=== PATIENT | male | born 1975 | race Asian ===

== ENCOUNTER 2016-11-11 01:44 | Emergency (ER) | payer OTHER ==
[~2016-11-11] VITALS: Ht 167.6 cm; Wt 72.8 kg
[2016-11-11 01:48] VITALS: TEMP 36.6; Ht 167.6 cm; Wt 72.8 kg
[2016-11-11] MEDS ORDERED: DiphenhydrAMINE HCL 50 MG/ML VIAL IV STA (02:04)
[2016-11-11] MEDS ORDERED: EPINEPHRINE ADULT AUTO-INJECT 0.3 MG SYR IM ONE (02:15)
[2016-11-11] MEDS ORDERED: DEXAMETHASONE SOD INJ 10 MG/ML VIAL IV ONE (02:15)
[2016-11-11 02:24] VITALS: O2SAT 99
--- NOTE | 2016-11-11 02:56 | EMERGENCY ROOM VISIT NOTE ---
History First contact with patient: 01:52 Chief Complaint: ALLERGIC REACTION Stated Complaint: FOOD ALLERGIES History of Present Illness The patient is a 41 year old male who presents to the Emergency Room with complaints of allergic reaction after eating shrimp. Patient is allergic to lobster. He has had no problems in the past with shrimp until now. He took 2 Claritin and feels slightly better. Patient complains of rash and itching and some slight throat discomfort. Patient denies chest pain, dyspnea, fever, chills, facial swelling, feeling of impending doom, abdominal pain. Review of Systems See HPI for pertinent positives & negatives. A total of 10 systems reviewed and were otherwise negative. Past Medical/Surgical History none Social History Smoking Status: Never Smoker Smokeless Tobacco Use: No Drug Use: none Occupation Status: employed Current/Historical Medications No Active Prescriptions or Reported Meds Allergies Coded Allergies: Lobster (Verified Allergy, Unknown, ITCHY, 11/11/16) Physical Exam Vital Signs Date Time Temp Pulse Resp B/P (MAP) Pulse Ox O2 Delivery O2 Flow Rate FiO2 11/11/16 02:30 79 16 97 Room Air 11/11/16 02:24 99 Room Air 11/11/16 02:24 Room Air 99 11/11/16 01:48 36.6 76 18 140/92 95 Room Air Physical Exam VITALS: Vitals are noted on the nurse's note and reviewed by myself. Vital signs stable. GENERAL:pleasant male, in no acute distress, nondiaphoretic, well-developed well -nourished. SKIN: Diffuse erythematous slightly raised dermatitis that is blanchable consistent with allergic reaction The rest of the skin was without rashes, erythema, edema, or bruising. There is no tenting of the skin. Capillary reflex less than 2 seconds. HEAD: Normocephalic atraumatic. EARS: External auditory canals clear, tympanic membranes pearly luong without erythema or effusion bilaterally. EYES: Pupils equal round and reactive to light and accommodation. Conjunctivae without injection, sclerae without icterus. Extraocular movements intact. NOSE: Patent, turbinates without inflammation or discharge. MOUTH: Mucous membranes moist. . Pharynx without erythema or exudate. Uvula midline. Airway patent. Tongue does not deviate. No airway compromise. No facial swelling. NECK: Supple without nuchal rigidity. No lymphadenopathy. No thyromegaly. Cervical spine is nontender. No JVD. HEART: Regular rate and rhythm without murmurs gallops or rubs. LUNGS: Clear to auscultation bilaterally without wheezes, rales or rhonchi. No dullness to percussion. No retractions or accessory muscle use. ABDOMEN: Positive bowel sounds x 4. Normal tympanic percussion. Soft, nontender, without masses or organomegaly. Mayo sign negative. No guarding or rebound tenderness. MUSCULOSKELETAL: No muscle atrophy, erythema, or edema noted. NEURO: Patient was alert and oriented to person place and time. Normal sensation to light and sharp touch. No focal neurological deficits. Medical Decision & Procedures Medications Administered Medications (Trade) Dose Ordered Sig/Veda Route Start Time Stop Time Status Last Admin Dose Admin Dexamethasone Sodium Phosphate (Decadron Inj) 10 mg NOW ONCE IV 11/11/16 02:15 11/11/16 02:16 DC 11/11/16 02:32 10 MG Diphenhydramine HCl (Benadryl Inj) 50 mg NOW STAT IV 11/11/16 02:04 11/11/16 02:05 DC 11/11/16 02:32 50 MG ED Course Prior records/ancillary studies reviewed. Triage Nursing notes reviewed. The patient's history was concerning for possible allergic reaction. Differential diagnosis: Etiologies such as allergic reaction, anaphylaxis, urticaria, Madden-Travis syndrome, toxic epidermal necrolysis, erythema multiforme, cellulitis, as well as others were entertained. Physical examination: As above. ER treatment provided: Continuous cardiac monitoring Benadryl 50 mg IV Zantac 50 mg IV Decadron 10 mg IV On reassessment the patient felt better. Diagnostic interpretation by me: Deferred It appears the patient had an allergic reaction. The above treatment did well to reverse the symptoms. After prolonged monitoring and frequent reassessments the patient did very well and symptoms resolved. The patient was counseled on the spectrum of this disease process and told to avoid potential triggers. I gave my usual and customary discussion regarding this issue. By the evaluation outlined above emergent etiologies such as recurring anaphylaxis, anaphylatic shock, airway compromise, Madden-Travis syndrome, toxic epidermal necrolysis, erythema multiforme, infectious etiologies, as well as others were deemed relatively unlikely. The pt informed about the findings as listed above. All questions were answered and pleased with the treatment. Return instructions were outlined and the patient was discharged in stable condition. Outpatient prescription management: EpiPen prednisone Referral: The patient was referred back to primary care physician for follow-up in 2-3 days for a recheck of the current condition. Medical Decision as above Impression Primary Impression: Allergic reaction Departure Information Dispostion Home / Self-Care Condition GOOD Prescriptions No Active Prescriptions or Reported Meds Referrals [facility] (PCP) Patient Instructions My [facility] Additional Instructions Do not eat shrimp in the future. Gucci this as an allergy. DO NOT drive, drink alcohol, operate machinery, or perform dangerous activities today. You were given medications in the ER that can affect your ability to safely function or operate a vehicle. Epi-Pen: Use one injection as instructed for severe allergic reactions associated with shortness of breath, difficulty breathing, or throat or tongue swelling. If you use this injection call 911 or proceed immediately to the nearest Emergency Room. Prednisone 50mg: Once daily until the prescription is finished. It is best to take this earlier in the day as some patients note occasional difficulty falling asleep when taken in the late evening. Diphenhydramine(Benadryl) 25mg: use 25 to 50 mg every six hours for swelling, itching, or hives. This medication is sedating and will cause drowsiness. Avoid alcohol, operating machinery or dangerous equipment, working on ladders or roofs, DRIVING, or situations where being under the influence may be dangerous. Zantac 75: Take two pills twice a day along with Benadryl as needed for swelling , itching, or hives. Most people know this for its affect on the stomach, but it also acts similar to, but less potent than Benadryl for allergic reactions. Both the Benadryl and the Zantac are available [id number]. Continue current medications. Return to the emergency department for worsening of your rash, swelling of your face, lips, tongue, or throat, difficulty breathing, vomiting, or as needed. Follow-up with your primary care physician in 2 to 3 days for a recheck of your current condition. Problem Qualifiers Primary Impression: Allergic reaction Encounter type: initial encounter Qualified Codes: T78.40XA - Allergy, unspecified, initial encounter
[2016-11-11] MEDS ORDERED: PRED50TA PO (02:57)
[2016-11-11 03:10] VITALS: BP 104/67; PULSE 79; O2SAT 98
== END 2016-11-11 03:18 | disposition home or self-care (01) ==
LOC: C.EDB 01:45
DX: T78.40XA Allergy, unspecified, initial encounter (principal); X58.XXXA Exposure to other specified factors, initial encounter; Z91.013 Allergy to seafood

== ENCOUNTER → 2017-05-09 | Outpatient (CLI) | payer OTHER ==
[2017-05-09 11:20] LABS: THYROID STIMULATING HORMONE 1.5 uIu/ml (0.300-4.500)
== END | disposition home or self-care (01) ==
LOC: C.LAB1850 09:31
PROVIDERS: ATTEND Internal Medicine Endocrinology, Diabetes & Metabolism
DX: E05.90 Thyrotoxicosis, unspecified without thyrotoxic crisis or storm (principal)

== ENCOUNTER 2017-05-30 08:22 | Emergency (ER) | payer OTHER ==
[2017-05-30 08:37] VITALS: TEMP 36.7
[2017-05-30] MEDS ORDERED: ONDANSETRON INJ 2 MG/ML 2 ML VIAL IV STA (09:00)
[2017-05-30] MEDS ORDERED: HYDROmorphone INJ 0.5 MG/0.5 ML SYR IV STA ×2 (09:00→11:00)
--- NOTE | 2017-05-30 09:14 | EMERGENCY ROOM VISIT NOTE ---
History First contact with patient: 08:43 Chief Complaint: ABDOMINAL PAIN Stated Complaint: BELLY PAIN History of Present Illness The patient is a 42 year old male who presents to the Emergency Room with complaints of abdominal pain which began at 7 AM yesterday morning. The patient states the pain was mild, but he did have intermittent periods of more intense abdominal pain. He states the pain seemed to improve yesterday evening , and he was okay until 5 AM this morning. At this time, the patient began experiencing severe, very sharp pain his periumbilical area. He states the pain does come and go, but does remain present consistently. The patient denies any fever, diarrhea, chills, nausea, vomiting, upper respiratory infection, recent illness, chest pain, dyspnea, or urinary symptoms. He states the pain has stayed pretty consistent around his bellybutton. He has not taken any medications for pain. His last bowel movement was one hour ago and was normal. Review of Systems A complete 10 point review of systems was reviewed with the patient with pertinent positives and negatives as per history of present illness. All else were negative. Social History Smoking Status: Never Smoker Drug Use: none Occupation Status: employed Physical Exam Vital Signs Date Time Temp Pulse Resp B/P (MAP) Pulse Ox O2 Delivery O2 Flow Rate FiO2 05/30/17 15:42 80 20 104/73 95 05/30/17 14:28 65 16 128/72 96 Room Air 05/30/17 11:22 80 20 124/91 95 05/30/17 10:03 86 18 115/86 95 Room Air 05/30/17 08:37 36.7 87 20 135/94 99 Room Air Physical Exam VITALS: Vitals are noted on the nurse's note and reviewed by myself. Vital signs stable. GENERAL: This is a 42-year-old male, in obvious pain, nondiaphoretic, well -developed well-nourished. SKIN: The skin was without rashes, erythema, edema, or bruising. There is no tenting of the skin. Capillary reflex less than 2 seconds. HEAD: Normocephalic atraumatic. EARS: External auditory canals clear, tympanic membranes pearly luong without erythema or effusion bilaterally. EYES: Pupils equal round and reactive to light and accommodation. Conjunctivae without injection, sclerae without icterus. Extraocular movements intact. NOSE: Patent, turbinates without inflammation or discharge. No sinus tenderness. MOUTH: Mucous membranes moist. Tonsils are not enlarged. Pharynx without erythema or exudate. Uvula midline. Airway patent. Tongue does not deviate. NECK: Supple without nuchal rigidity. No lymphadenopathy. No thyromegaly. Cervical spine is nontender. No JVD. HEART: Regular rate and rhythm without murmurs gallops or rubs. LUNGS: Clear to auscultation bilaterally without wheezes, rales or rhonchi. No dullness to percussion. No retractions or accessory muscle use. ABDOMEN: Positive bowel sounds x 4. Normal tympanic percussion. The abdomen is firm on palpation and the patient is unable to get comfortable due to pain. The patient is extremely tender periumbilically and over McBurney's point. There are no obvious masses or organomegaly. There is significant guarding. Mayo sign negative. No rebound tenderness. MUSCULOSKELETAL: No muscle atrophy, erythema, or edema noted. Full range of motion without joint tenderness in all extremities. No tenderness to palpation. Normal gait. Strength 5/5 throughout. NEURO: Patient was alert and oriented to person place and time. Normal sensation to light and sharp touch. Deep tendon reflexes 2+ throughout. No focal neurological deficits. Medical Decision & Procedures ER Provider Diagnostic Interpretation: CBC did show leukocytosis of >12,000. No anemia or thrombocytopenia. Urinalysis is without signs of infection. CMP shows mildly elevated bilirubin, CO2 of 25, normal liver and renal function , and no significant electrolyte abnormalities. Lipase was normal. POC Lactic acid 1.17. ABD/PELVIS IV AND ORAL CONT CT DOSE: 303.38 mGy.cm HISTORY: Pain Periumbilical pain, RLQ tenderness TECHNIQUE: Multiaxial CT images of the abdomen and pelvis were performed following the use of intravenous and oral contrast. A dose lowering technique was utilized adhering to the principles of ALARA. COMPARISON STUDY: None. FINDINGS: Slight bibasilar interstitial prominence. Small hiatal hernia. 7 mm cyst superior aspect right hepatic lobe. Mild fatty infiltration of liver. The colonic pattern is nonobstructive. Small bowel pattern shows areas of a diffuse wall edematous change in the low central abdominal region. This is seen primarily deep to the umbilicus. The anterior abdominal wall appears to be intact. Maximum wall thickness of the small bowel in this location is 1.3 cm. There is a moderate amount of free fluid within the cul-de-sac which is most likely reactive. There is moderate infiltrative change of the surrounding fat. The remainder the small bowel appears unremarkable and essentially nondistended. Diagnostic considerations include the possibility of an inflammatory bowel process such as Crohn's disease, versus the less likely possibility of a closed loop obstruction given the absence of small bowel distention proximal to this site. This appears to involve a length of small bowel proximally 20 to 25 cm. There is no evidence for a significant rotational anomaly or bowel malrotation. There is no evidence for pneumatosis or free air. The appendix is unremarkable. Maximum wall thickness is approximately 1.3 cm in this region. IMPRESSION: 1. Considerable long segment of small bowel in the central abdominal region showing marked edematous change and or wall thickening. This is estimated at 20 to 25 cm in length, with a maximum wall thickness of 1.3 cm. 2. Diagnostic considerations include inflammatory bowel process such as Crohn's disease, versus the less likely possibility of a closed loop obstruction as discussed above. 3. No evidence for free air or pneumatosis. 4. No evidence for abscess collection or obstruction. 5. Possibility of an atypical presentation of an entity such as lymphoma is not entirely excluded although is considered less likely The above report was generated using voice recognition software. It may contain grammatical, syntax or spelling errors. Electronically signed by: Gucci Bergeron M.D. 05/30/2017 12:27 PM Dictated Date/Time: 05/30/2017 12:12 PM Laboratory Results 05/30/17 09:10 Red Blood Count 5.33, Mean Corpuscular Volume 85.7, Mean Corpuscular Hemoglobin 30.2, Mean Corpuscular Hemoglobin Concent 35.2, Mean Platelet Volume 9.8, Neutrophils (%) (Auto) 72.8, Lymphocytes (%) (Auto) 20.0, Monocytes (%) (Auto) 5.4, Eosinophils (%) (Auto) 1.0, Basophils (%) (Auto) 0.2, Neutrophils # (Auto) 9.18, Lymphocytes # (Auto) 2.53, Monocytes # (Auto) 0.68, Eosinophils # (Auto) 0.13, Basophils # (Auto) 0.03 05/30/17 09:10 05/30/17 10:08 Test 05/30/17 09:10 05/30/17 09:15 05/30/17 10:08 05/30/17 16:13 White Blood Count 12.63 K/uL (4.8-10.8) Red Blood Count 5.33 M/uL (4.7-6.1) Hemoglobin 16.1 g/dL (14.0-18.0) Hematocrit 45.7 % (42-52) Mean Corpuscular Volume 85.7 fL (80-100) Mean Corpuscular Hemoglobin 30.2 pg (25-34) Mean Corpuscular Hemoglobin Concent 35.2 g/dl (32-36) Platelet Count 239 K/uL (130-400) Mean Platelet Volume 9.8 fL (7.4-10.4) Neutrophils (%) (Auto) 72.8 % Lymphocytes (%) (Auto) 20.0 % Monocytes (%) (Auto) 5.4 % Eosinophils (%) (Auto) 1.0 % Basophils (%) (Auto) 0.2 % Neutrophils # (Auto) 9.18 K/uL (1.4-6.5) Lymphocytes # (Auto) 2.53 K/uL (1.2-3.4) Monocytes # (Auto) 0.68 K/uL (0.11-0.59) Eosinophils # (Auto) 0.13 K/uL (0-0.5) Basophils # (Auto) 0.03 K/uL (0-0.2) RDW Standard Deviation 41.9 fL (36.4-46.3) RDW Coefficient of Variation 13.4 % (11.5-14.5) Immature Granulocyte % (Auto) 0.6 % Immature Granulocyte # (Auto) 0.08 K/uL (0.00-0.02) Anion Gap 4.0 mmol/L (3-11) Estimated GFR () 114.1 Estimated GFR (Non- 98.5 BUN/Creatinine Ratio 13.9 (10-20) Calcium Level 9.1 mg/dl (8.5-10.1) Total Bilirubin 1.3 mg/dl (0.2-1) Alanine Aminotransferase (ALT/SGPT) 51 U/L (12-78) Alkaline Phosphatase 99 U/L (45-117) Total Protein 8.3 gm/dl (6.4-8.2) Albumin 3.8 gm/dl (3.4-5.0) Globulin 4.5 gm/dl (2.5-4.0) Albumin/Globulin Ratio 0.8 (0.9-2) Lipase 100 U/L (73-393) Urine Color YELLOW Urine Appearance CLEAR (CLEAR) Urine pH 5.0 (4.5-7.5) Urine Specific [place] 1.026 (1.000-1.030) Urine Protein NEG (NEG) Urine Glucose (UA) NEG (NEG) Urine Ketones NEG (NEG) Urine Occult Blood NEG (NEG) Urine Nitrite NEG (NEG) Urine Bilirubin NEG (NEG) Urine Urobilinogen NEG (NEG) Urine Leukocyte Esterase NEG (NEG) Aspartate Amino Transf (AST/SGOT) 21 U/L (15-37) Bedside Lactic Acid Venous 1.17 mmol/L (0.90-1.70) Medications Administered Medications (Trade) Dose Ordered Sig/Veda Route Start Time Stop Time Status Last Admin Dose Admin Hydromorphone HCl (Dilaudid Inj) 0.5 mg NOW STAT IV 05/30/17 09:00 05/30/17 09:07 DC 05/30/17 09:39 0.5 MG Ondansetron HCl (Zofran Inj) 4 mg NOW STAT IV 05/30/17 09:00 05/30/17 09:07 DC 05/30/17 09:39 4 MG Hydromorphone HCl (Dilaudid Inj) 0.5 mg NOW STAT IV 05/30/17 11:00 05/30/17 11:01 DC 05/30/17 11:13 0.5 MG Oxycodone HCl (Roxicodone Immediate Rel Tab) 5 mg NOW STAT PO 05/30/17 13:47 05/30/17 13:48 DC 05/30/17 14:02 5 MG ED Course The patient was seen and evaluated as above. He was in a significant amount of pain, and could not get comfortable. IV access was obtained, labs were drawn, and the patient was given 0.5 mg Dilaudid and 4 mg Zofran IV. Labs and imaging studies were ordered. I reassessed the patient, and he states he is in no pain. While waiting for CT, the patient states his pain did return, approximately 2 hours after his pain medication. He did request more pain medicine. I did personally see and evaluate the patient, and he does appear to be in moderate to significant discomfort. He continues to have a tender abdomen. He was given a repeat dose of 0.5 mg Dilaudid. I reassessed the patient, and he again states he is pain-free. I did ask the patient has moved his bowels since he has been here, and he states he has not. I discussed results of CT scan with the patient at bedside. I did advise him that I am concerned due to the findings, and suggested possible admission at this time. I discussed the case with Dr. Malagon. He feels that the findings on CT are not acutely concerning, and feels that the patient can be discharged home with treatment for Crohn's disease and follow up with his PCP next week. He did discuss this with the patient. I reassessed the patient, and the patient states he is in pain, and would like more pain medication. I advised him that if the plan is to send him home, we should put him on PO pain medication to ensure that helps. The patient is agreeable. He was given 5mg OxyIR. I reassessed the patient and he states he is feeling better, but still has pain. I consulted with Dr. Lay GI. He recommended based on the patient's symptoms and CT scan results, that the patient be admitted and possible further evaluation performed by the medicine team. He recommended a Lactic Acid level. He states if the patient is not agreeable to admission, he will attempt to have the patient seen in the office outpatient tomorrow. I spoke with the patient regarding this recommendation and he is agreeable to admission. The patient was evaluated by the hospitalist Jeanne SHUKLA. She was unable to elicit any tenderness on abdominal examination. She spoke with her attending and Dr. Lay. Dr. Lay advised Jeanne that the patient would be able to be seen outpatient. Given this information as well as the patient's non-tender abdomen at this time, Dr. Burrell did not feel that the patient meets criteria for admission and recommended discharge. I discussed this with the patient at bedside. He states his pain is returning and he feels that he should not go home. I did re-assess his abdomen and palpated. I did elicit significant tenderness in the periumbilical region again at this time. The patient was wincing due to pain and was guarding. The abdomen was firm. I paged Jeanne to speak with her again and have her re-assess the patient. She spoke with Dr. Burrell again and was advised again that the patient will not be admitted. Jeanne and I discussed this with the patient at bedside. He states his pain is coming and going, lasting a few minutes at most. He states he is feeling well now at this time. The patient will be discharged and follow-up outpatient tomorrow. He is to return for worsening pain which is not relieved by OTC medications. Discharge instructions reviewed, the patient was discharged home in good condition. Medical Decision Etiologies such as appendicitis, diverticulitis, obstruction, inflammatory bowel disease, renal colic, PUD, biliary pathology, pancreatitis, mesenteric ischemia, aortic pathology, infections, genitourinary, UTI, perforated viscus, drug-seeking behavior, as well as others were entertained. The patient presented today in very significant acute pain this morning. He was unable to get comfortable and was in very obvious discomfort. I was concerned for an acute surgical abdomen, likely appendicitis on initial examination. The patient's symptoms improved significantly with Dilaudid. He tolerated the PO contrast without difficulty. He has had no nausea, vomiting, diarrhea, constipation, or other associated symptoms. He has had no chronic symptoms including weight loss or other abdominal pain. He did have an elevated [place] blood [place] of >[address] as well as some concerning findings on CT scan for inflammatory changes, possible closed loop obstruction, or lymphoma. The patient did require multiple rounds of IV narcotics, which did treat his pain. He looked much improved throughout his stay in the ED. I consulted with Dr. Lay, who was concerned for possible ischemic event and recommended admission. The hospitalists were contacted, and the patient had a non-tender abdomen with no concerning signs or symptoms. The hospitalist did not feel that the patient met criteria for admission. While I am uncertain if the patient is experiencing symptoms of an inflammatory bowel disease or other inflammatory condition, I am concerned about a more severe event. The patient was encouraged to use OTC pain medication for relief of his pain. If his pain returns, he is to return immediately to the ED for re-evaluation. He will follow-up short term with Dr. Lay or Dr. Davis tomorrow regarding CT findings. [place] Drug Monitoring Program Search Results: patient reviewed within database, no issues identified Medication Reconcilliation Current Medication List: was personally reviewed by me Blood Pressure Screening Patient's blood pressure: Normal blood pressure Impression Primary Impression: Inflammatory bowel disease Additional Impression: Abdominal pain Departure Information Dispostion Home / Self-Care Condition GOOD Referrals [facility] (PCP) Simon Lay M.D. Patient Instructions ED Inflam Bowel Disease Crohn, My [facility] Additional Instructions You were seen in the emergency department today for abdominal pain. CT scan did show a long segment of small bowel in the central abdomen which showed some edematous change/wall thickening. This is concerning for possible inflammatory bowel process such as Crohn's disease. A less likely concern is a closed loop obstruction or lymphoma. As discussed, I do recommend admission/observation for monitoring and management. If your symptoms worsen, return immediately to the emergency department for further evaluation and management. As discussed, it is possible you could develop an abscess, sepsis, or if your symptoms worsen. icines. Ibuprofen(Motrin, Advil) may be used for fever or pain. Use 600mg every six hours as needed. Take with food. Avoid using more than 2400mg in a 24 hour period. Do not use 2400mg per day for more than three consecutive days without physician direction. Prolonged inappropriate use can lead to stomach upset or ulcers. (AND/OR) Acetaminophen(Tylenol) may be used for fever or pain. Use 1000mg every six hours as needed. Avoid using more than 3000mg in a 24 hour period. Take a stool softener such as Dulcolax to help prevent bowel obstruction or constipation. Follow-up with Dr. Lay's office tomorrow for re-evaluation. Please follow up with [facility] on Saturday for recheck and further management of the inflammatory bowel disease. Return immediately to the emergency department for worsening abdominal pain, constipation, fever, chills, nausea, vomiting, or other worsening associated symptoms. Problem Qualifiers Additional Impression: Abdominal pain Abdominal location: periumbilical Qualified Codes: R10.33 - Periumbilical pain
[2017-05-30 09:21] LABS: BASO % 0.2 %; BASO ABS # 0.03 K/uL (0-0.2); EOS ABS # 0.13 K/uL (0-0.5); HEMATOCRIT 45.7 % (42-52); HEMOGLOBIN 16.1 g/dL (14.0-18.0); IG# 0.08 K/uL (0.00-0.02); LYMPH ABS # 2.53 K/uL (1.2-3.4); MEAN CELL VOLUME 85.7 fL (80-100); MEAN CORPUSCULAR HEMOGLOBIN 30.2 pg (25-34); MEAN CORPUSCULAR HGB CONC 35.2 g/dl (32-36); MEAN PLATELET VOLUME 9.8 fL (7.4-10.4); MONO % 5.4 %; MONO ABS # 0.68 K/uL (0.11-0.59); NEUT % 72.8 %; NEUT ABS # 9.18 K/uL (1.4-6.5); PLATELET COUNT 239 K/uL (130-400); RED CELL DISTRIBUTION WIDTH CV 13.4 % (11.5-14.5); RED CELL DISTRIBUTION WIDTH SD 41.9 fL (36.4-46.3); WHITE BLOOD COUNT 12.63 K/uL (4.8-10.8)
[2017-05-30] MEDS ORDERED: OPTIRAY 320 IV PRN (09:30)
[2017-05-30 09:50] LABS: ALBUMIN 3.8 gm/dl (3.4-5.0); ALKALINE PHOSPHATASE 99 U/L (45-117); ALT/SGPT 51 U/L (12-78); BLOOD UREA NITROGEN 13 mg/dl (7-18); CALCIUM 9.1 mg/dl (8.5-10.1); CARBON DIOXIDE 25 mmol/L (21-32); CREATININE 0.96 mg/dl (0.60-1.40); GLUCOSE 110 mg/dl (70-99); LIPASE 100 U/L (73-393); SODIUM 137 mmol/L (136-145); TOTAL PROTEIN 8.3 gm/dl (6.4-8.2)
[2017-05-30 10:26] LABS: POTASSIUM 4.5 mmol/L (3.5-5.1)
--- NOTE | 2017-05-30 12:28 | DIAGNOSTIC IMAGING REPORT ---
ABD/PELVIS IV AND ORAL CONT CT DOSE: 303.38 mGy.cm HISTORY: Pain Periumbilical pain, RLQ tenderness TECHNIQUE: Multiaxial CT images of the abdomen and pelvis were performed following the use of intravenous and oral contrast. A dose lowering technique was utilized adhering to the principles of ALARA. COMPARISON STUDY: None. FINDINGS: Slight bibasilar interstitial prominence. Small hiatal hernia. 7 mm cyst superior aspect right hepatic lobe. Mild fatty infiltration of liver. The colonic pattern is nonobstructive. Small bowel pattern shows areas of a diffuse wall edematous change in the low central abdominal region. This is seen primarily deep to the umbilicus. The anterior abdominal wall appears to be intact. Maximum wall thickness of the small bowel in this location is 1.3 cm. There is a moderate amount of free fluid within the cul-de-sac which is most likely reactive. There is moderate infiltrative change of the surrounding fat. The remainder the small bowel appears unremarkable and essentially nondistended. Diagnostic considerations include the possibility of an inflammatory bowel process such as Crohn's disease, versus the less likely possibility of a closed loop obstruction given the absence of small bowel distention proximal to this site. This appears to involve a length of small bowel proximally 20 to 25 cm. There is no evidence for a significant rotational anomaly or bowel malrotation. There is no evidence for pneumatosis or free air. The appendix is unremarkable. Maximum wall thickness is approximately 1.3 cm in this region. IMPRESSION: 1. Considerable long segment of small bowel in the central abdominal region showing marked edematous change and or wall thickening. This is estimated at 20 to 25 cm in length, with a maximum wall thickness of 1.3 cm. 2. Diagnostic considerations include inflammatory bowel process such as Crohn's disease, versus the less likely possibility of a closed loop obstruction as discussed above. 3. No evidence for free air or pneumatosis. 4. No evidence for abscess collection or obstruction. 5. Possibility of an atypical presentation of an entity such as lymphoma is not entirely excluded although is considered less likely The above report was generated using voice recognition software. It may contain grammatical, syntax or spelling errors. Electronically signed by: Gucci Bergeron M.D. 05/30/2017 12:27 PM Dictated Date/Time: 05/30/2017 12:12 PM
--- NOTE | 2017-05-30 12:57 | EMERGENCY ROOM VISIT NOTE ---
ED Visit Note First contact with patient: 08:43 42-year-old male with abdominal pain was fully evaluated by Janice Roper PA-C. Please see her note. I also independently evaluated the patient. The patient had a CAT scan which reveals some inflammatory changes of the bowel. White count is minimally elevated. The patient felt significantly better and was observed for some time prior to discharge.
[2017-05-30] MEDS ORDERED: OXYCODONE HCL IR 5 MG TAB (IMMEDIATE RELEASE) PO STA (13:47)
[2017-05-30] MEDS ORDERED: SULF500T36 PO (15:43)
[2017-05-30] MEDS ORDERED: OXYC-90 PO (15:43)
[2017-05-30 17:38] VITALS: BP 105/76; PULSE 80; O2SAT 100
== END 2017-05-30 17:50 | disposition home or self-care (01) ==
LOC: C.EDB 08:23
DX: K58.9 Irritable bowel syndrome, unspecified (principal); R10.9 Unspecified abdominal pain